=== PATIENT | female | born 1985 | race Caucasian/White ===

== ENCOUNTER 2016-06-23 22:09 | Emergency (ER) | payer MEDICARE, MEDICAID ==
[2016-06-24] MEDS ORDERED: LIDOCAINE 2% JELLY 30 ML TUBE TOP ONE (00:33)
--- NOTE | 2016-06-24 00:41 | ER Document Report ---
ED General - General Chief Complaint: Rectal bleeding/ hemorrhoids Stated Complaint: RECTAL BLEEDING Time Seen by Provider: 06/23/16 23:53 Notes: Patient is a 30-year-old female presents with complaint of a hemorrhoid. She has a history of him with a past. She's had them ligated in the past by Dr. Olson. She says she has one hemorrhoid that she says keeps pushing out. She has been using preparation H but is not helping. She has no other complaints this time. She's had some mild bleeding. TRAVEL OUTSIDE OF THE [place] IN LAST 30 DAYS: No - Related Data Allergies/Adverse Reactions: No Known Allergies Allergy (Unverified 06/24/16 00:52) Past Medical History - Social History Smoking Status: Never Smoker Frequency of alcohol use: None Drug Abuse: None Family History: Reviewed & Not Pertinent Renal/ Medical History: Denies: Hx Peritoneal Dialysis Review of Systems - Review of Systems Notes: My Normal Review Basic REVIEW OF SYSTEMS: CONSTITUTIONAL : Denies fever, chills, or sweats. Denies recent illness. GASTROINTESTINAL: Denies abdominal pain. Denies nausea, vomiting, or diarrhea. Denies constipation. Has hemorrhoids. MUSCULOSKELETAL: Denies neck or back pain or joint pain or swelling. SKIN: Denies rash or skin lesions. NEUROLOGICAL: Denies altered mental status or loss of consciousness. Denies headache. Denies weakness or paralysis or loss of use of either side. Denies problems with gait or speech. Denies sensory or motor loss. ALL OTHER SYSTEMS REVIEWED AND NEGATIVE. Physical Exam - Vital signs Vitals: Resp 20 06/24/16 00:30 - Notes Notes: General Appearance: Well nourished, alert, cooperative, no acute distress, no obvious discomfort. Vitals: reviewed, See vital signs table. Rectal exam: Patient has one large hemorrhoid that is not thrombosed. This is protruding from the rectum. Is tender to palpation. It is soft. No active bleeding at this time. Neuro: speech clear, oriented x 3, normal affect, responds appropriately to questions. Course - Vital Signs Vital signs: Temp Pulse Resp BP Pulse Ox 98.3 F 83 20 110/80 100 06/24/16 01:00 06/24/16 01:00 06/24/16 01:00 06/24/16 01:00 06/24/16 01:00 - Transfer of Care Notes: 06/24/16 05:45 I have given the patient lidocaine jelly to apply 2 to help with the pain. I' ll have her follow-up with Dr. Olson. I encourage her to call him or any of the local GI doctors this morning to make a close follow-up appointment to have the hemorrhoid ligated. Patient encouraged return to ER she has heavy bleeding , worsening pain, or feels unwell. Patient agrees with plan and will be discharged home. Dictation of this chart was performed using voice recognition software; therefore, there may be some unintended grammatical errors. Discharge - Discharge Clinical Impression: Acute hemorrhoid Condition: Good Disposition: HOME, SELF-CARE Additional Instructions: Hemorrhoids You have hemorrhoids. These are formed by enlargement of veins around the anus. The cause is increased pressure in the veins, from or straining at bowel movements. Hemorrhoids often cause itching and bleeding with bowel movements. When a hemorrhoid becomes clotted, severe pain and swelling result. Soothing creams and suppositories are often prescribed. Warm sitz-baths may also decrease pain, swelling, and itching. Eat a high-fiber diet. Stool softeners such as Metamucil will help. Keep the area very clean. Medicated cleansing pads (such as Tucks) are useful after bowel movements. A hose-mounted shower unit (like a shower massager at low water pressure) can be used to clean around tender hemorrhoid tags. You should call the doctor or return if you develop fever, increasing pain , or an enlarging mass around the anus, or if you simply fail to improve with treatment. Please apply a thin layer of lidocaine jelly to the hemorrhoid 3 times a day. Do not apply more than 3 times a day. please call the GI specialist in the morning to make a quick follow up appointment. I have included the numbers to the 3 local GI specialists. Forms: Return to Work Referrals: KHANG OLSON MD [ACTIVE STAFF] - Follow up tomorrow IRMA COOK MD [ACTIVE STAFF] - Follow up tomorrow DENISE RODRIGUEZ MD [ACTIVE STAFF] - Follow up tomorrow
[2016-06-24] MEDS ORDERED: LIDOCAINE 2% JELLY 30 ML TUBE ONE (00:56)
[2016-06-24 01:09] VITALS: BP 110/80
== END 2016-06-24 01:00 | disposition home or self-care (01) ==
LOC: ER 22:09
DX: K64.8 Other hemorrhoids (principal)
CPT/HCPCS: 99283